=== PATIENT | male | born 1970 | race Asian ===

== ENCOUNTER 2019-12-16 11:01 | Emergency (ER) | payer BC ==
[~2019-12-16] VITALS: Ht 167.6 cm; Wt 65.8 kg
[~2019-12-16 11:01] MED LIST: APAP500 PO; CEFTIN 250 MG250 MG PO; NAPROSYN500 MG PO; NORFLEX100 MG PO; TRAMADOL 50 MG50 MG PO; ULTRAM 50MG TAB50 MG PO
[2019-12-16] MEDS ORDERED: LIPITOR10 MG PO (11:08)
[2019-12-16] MEDS ORDERED: CETIRIZINE HCL5 MG PO (11:09)
[2019-12-16 12:22] VITALS: BP 135/90
== END 2019-12-16 12:14 | disposition home or self-care (01) ==
LOC: ER 11:01
DX: S63.502A Unspecified sprain of left wrist, initial encounter (principal); Z79.899 Other long term (current) drug therapy; W22.8XXA Striking against or struck by other objects, initial encounter; Y93.89 Activity, other specified; Y92.89 Other specified places as the place of occurrence of the external cause; Y99.0 Civilian activity done for income or pay

== ENCOUNTER 2020-06-14 09:36 | Emergency (ER) | payer BC ==
[~2020-06-14] VITALS: Ht 170.2 cm; Wt 64.0 kg
[~2020-06-14 09:36] MED LIST changes: +CETIRIZINE HCL5 MG PO; +LIPITOR10 MG PO
[2020-06-14 10:52] LABS: ABSOLUTE NEUTROPHILS 1.9 thou/uL (1.4-8.2); BASOPHILS 0.4 % (0.0-2.0); EOSINOPHILS 3.5 % (0.0-3.0); HEMATOCRIT 42.6 % (42.0-52.0); HEMOGLOBIN 14.1 gm/dL (14.0-18.0); LYMPHOCYTES 36.3 % (24.0-44.0); MCH 29.4 pg (26.0-34.0); MCV 89.2 fL (80.0-100.0); MONOCYTES 10.5 % (1.0-8.0); PLATELET COUNT 187 thou/uL (150-400); POLYS 49.3 % (36.0-66.0); RBC 4.78 mil/uL (4.50-6.00); RDW 13.3 % (10.5-14.5)
[2020-06-14 11:00] LABS: ANION GAP 7 mmol/L (7-16); BUN 26 mg/dL (7-18); CHLORIDE 105 mmol/L (98-107); CO2 28 mmol/L (21-32); GLUCOSE 84 mg/dL (74-106); POTASSIUM 3.7 mmol/L (3.5-5.1); SODIUM 140 mmol/L (136-145)
[2020-06-14 11:10] LABS: TROPONIN-I <0.06 ng/mL (<0.06)
[2020-06-14 13:53] VITALS: BP 118/56
--- NOTE | 2020-06-14 15:57 | EKG ---
[facility] [address] [place] [address] ELECTROCARDIOGRAM REPORT Name: KATLIN BARAHONA Room #: [facility] MICHAEL Garner#: [id number] Admission: 06/14/20 Attend Phys: Discharge: 06/14/20 Date of : 66 Report #: [id number] <ELECTRONICALLY SIGNED> By: Dre Mcbride MD, FACC 06/14/20 [id number] Dre Mcbride MD, FACC /EPI
== END 2020-06-14 13:50 | disposition home or self-care (01) ==
LOC: ER 09:36
PROVIDERS: Emergency Medicine
DX: R55 Syncope and collapse (principal); R11.0 Nausea; R42 Dizziness and giddiness; R00.2 Palpitations; Z79.899 Other long term (current) drug therapy